=== PATIENT | female | born 1960 | race African-American/Black ===

== ENCOUNTER 2016-03-20 06:36 | Day surgery (SDC) | payer BC ==
[~2016-03-20 06:36] MED LIST: CEFTRIAXONE 1GM IVPB FOR OMNI 50 ML IV ONE; CIPR500T94 PO; LEVO100T5 PO; LEVO150T5 PO; POLY17PO5 PO
[2016-03-20] MEDS ORDERED: HYDROMORPHONE 2 MG/ML VIAL. IV PRN (07:00)
[2016-03-20] MEDS ORDERED: FENTANYL PF 100 MCG/2 ML VIAL. IV PRN ×2 (07:00)
[2016-03-20] MEDS ORDERED: MORPHINE SULFATE 2 MG/ML DISP.SYRIN. IV PRN (07:00)
[2016-03-20] MEDS ORDERED: PROCHLORPERAZINE 10 MG/2 ML VIAL. IV PRN (07:00)
[2016-03-20] MEDS ORDERED: IV RINGERS,LACTATED 1000ML 1,000 ML IV SCH (07:00)
[2016-03-20] MEDS ORDERED: LIDOCAINE 1% 1 ML SYRINGE. ID PRN (07:00)
[2016-03-20 07:05] LABS: BILIRUBIN,URINE NEGATIVE (NEG); GLUCOSE,URINE NEGATIVE (NEG); NITRITE,URINE NEGATIVE (NEG); PH,URINE 6.5; PROTEIN,URINE NEGATIVE (NEG-TRACE); UROBILINOGEN,URINE 0.2 mg/dL (0.2 mg/dL)
[2016-03-20 07:24] LABS: BACTERIA,URINE 0 /HPF (0-FEW); RBC,URINE 0 /HPF (0-2); SQUAMOUS EPITHELIAL CELL,UR MOD /LPF
[2016-03-20 07:34] LABS: BASO # 0.1 x10^3/uL (0.0-0.2); BASO % 2 % (0-3); CALCIUM 9.7 mg/dL (8.5-10.1); CREATININE 0.9 mg/dL (0.6-1.0); EOS % 4 % (0-3); HEMATOCRIT 33.8 % (36.0-47.0); HEMOGLOBIN 11.1 g/dL (12.0-15.5); LYMPH % 32 % (24-48); MEAN CORPUSCULAR HEMOGLOBIN 26 pg (25-35); MEAN CORPUSCULAR HGB CONC 33 g/dL (31-37); MEAN CORPUSCULAR VOLUME 80 fL (79-100); MONO % 7 % (0-9); NEUT % 54 % (31-73); PLATELET COUNT 219 x10^3/uL (140-400); RED BLOOD COUNT 4.21 x10^6/uL (3.50-5.40); RED CELL DISTRIBUTION WIDTH 15.8 % (11.5-14.5); WHITE BLOOD COUNT 6.1 x10^3/uL (4.0-11.0)
[2016-03-20] MEDS ORDERED: LIDOCAINE 2% 100 MG/5 ML DISP.SYRIN. ONE (07:44)
[2016-03-20] MEDS ORDERED: EPHEDRINE PF IN SALINE 50 MG/5 ML DISP.SYRIN. IV ONE (07:44)
[2016-03-20] MEDS ORDERED: ONDANSETRON PF 4 MG/2 ML VIAL. ONE (07:44)
[2016-03-20] MEDS ORDERED: PROPOFOL 20 ML IV ONE (07:44)
[2016-03-20] MEDS ORDERED: FENTANYL PF 100 MCG/2 ML VIAL. ONE (07:45)
[2016-03-20] MEDS ORDERED: IOHEXOL 300 MG/ML 50 ML VIAL. ONE (07:45)
[2016-03-20] MEDS ORDERED: SEVOFLURANE 61 TO 120 MINUTES. IH ONE (09:33)
--- NOTE | 2016-03-20 10:00 | DISCH ---
DISCHARGE INSTRUCTIONS Condition on Discharge Condition on Discharge: Stable Activity After Discharge Activity Instructions for Disc: Activity as tolerated Driving Instructions after Dis: Do not drive today Diet after Discharge Diet after Discharge: Regular Additional Diet Restrictions: Drink 8-10 12oz glasses of water per day with sten Contacting the DR. after DC Call your doctor for: Concerns you may have Follow-Up Follow up with: 5-7 days for removal of stent in office SHANKAR ROWE DO Mar 20, 2016 10:00
--- NOTE | 2016-03-20 10:04 | PDOC ---
BRIEF OPERATIVE NOTE Pre-Op Diagnosis right hydronephrosis, abnormal CT-scan Post-Op Diagnosis same Procedure Performed cystoscopy Right retrograde pyelogram diagnostic flexible ureteroscopy right stent placement Surgeon Jana Anesthesia Type: General Specimens Obtained None Findings normal study Complications none Additional Remarks will remove stent in office in 5-10 days SHANKAR ROWE DO Mar 20, 2016 10:04
[2016-03-20] MEDS ORDERED: PHEN-373 PO ×2 (10:10→10:12)
[2016-03-20] MEDS ORDERED: HYDR-2666 PO (10:11)
[2016-03-20 10:35] VITALS: BP 124/64
--- NOTE | 2016-03-20 10:48 | OP ---
DATE OF SURGERY: 03/20/2016 PREOPERATIVE DIAGNOSIS: Right hydronephrosis, dilated proximal right ureter. POSTOPERATIVE DIAGNOSIS: Right hydronephrosis, dilated proximal right ureter. PROCEDURES PERFORMED: Cystoscopy, right retrograde pyelogram, diagnostic ureteroscopy, placement of right ureteral stent. SURGEON: Shankar Rowe D.O. ANESTHESIA: General. INDICATIONS AND JUDGMENT: This is a 55-year-old female that was recently hospitalized for pyelonephritis and hematuria. During her workup, a CT scan revealed a dilated right renal pelvis and dilated proximal right ureter. Her infection was treated. She was sent home. It was felt that after her infection had been resolved, she needed to undergo further diagnostic test to rule out possible mass in the proximal right ureter. This was explained to the patient, she appeared to understand and was agreeable. DESCRIPTION OF PROCEDURE: The patient was preloaded with IV antibiotics. She was then taken to the operating room and placed on the operating room table, given a general anesthetic and then placed in a dorsolithotomy position using Cecil stirrups since we do not have a cystoscopy table. A C-arm was then moved into position. Rigid cystoscopy was then performed. The patient has a moderate cystocele. The right ureteral orifice was identified. It was cannulated with an 8-Estonian cone tip ureteral catheter. Contrast was injected. The course and caliber of the ureter appeared to be somewhat better at this point in time. The right renal pelvis did not appear as dilated. I then passed a 0.035 guidewire up the right ureteral orifice into the renal pelvis. I then balloon dilated the right ureteral orifice with 4 cm balloon. Following that, I advanced a sensor wire alongside the guidewire. I then attempted to advance a digital ureteroscope over the sensor wire, but it would not go beyond few cm of the ureter. There appeared to be some type of angulation. So the digital flexible ureteroscope was removed. I then tried the smaller ureteroscope, but it too could not pass this area in the pelvic ureter. I then balloon dilated the ureter with a 10 cm balloon to open up the ureter more satisfactorily. Following this, I advanced the digital ureteroscope over the guidewire and it advanced up the ureter under fluoroscopy without any difficulty. I advanced the flexible digital ureteroscope into the renal pelvis. At that point, I inspected the renal pelvis, the calices were normal. There was no sign of tumor or stones within the renal pelvis. I then slowly withdrawn the digital flexible ureteroscope into the proximal ureter which was normal in course and caliber. The area did not appear to be any filling defects, no tumors, no stones and I just slowly withdrew the flexible ureteroscope and the course and caliber of the ureter was completely normal and there were no filling defects such as tumors or stones. The flexible ureteroscope was then removed. Due to all the instrumentation I felt it would be best to leave an indwelling right ureteral stent. Therefore, a 6-Estonian x 26 cm double-J ureteral stent was advanced over the guidewire up to the ureter under fluoroscopy into the right renal pelvis. The positioning appeared to be satisfactory and therefore the wire was removed leaving the stent in place. The patient tolerated the procedure well and was sent to recovery room in satisfactory condition. Today's procedure reveals that there are no tumors or filling defects in the proximal right ureter, the renal pelvis was normal. The studies were normal. Her abnormal CT scan, previously was probably due to her pyelonephritis and swelling of the renal pelvis and proximal ureter. But no pathology was identified today. The patient will be sent home with an indwelling right ureteral stent, which can removed in the office in 3-5 days. She was given a prescription for Cipro antibiotics, Lortab 5 and generic Pyridium. Her condition was satisfactory. SHANKAR ROWE DO DR: Gagandeep JOB#: [id number] / [id number]
== END 2016-03-20 11:08 | disposition home or self-care (01) ==
LOC: SURG 06:36
PROVIDERS: ATTEND Urology
DX: N13.39 Other hydronephrosis (principal); N28.82 Megaloureter; N28.89 Other specified disorders of kidney and ureter; E03.9 Hypothyroidism, unspecified
CPT/HCPCS: 36415; 52332; 52351; 74420; 80048; 81001; 85027; 87086; C1726; C1769; C2617; J0690; J2405; J2704; J3010; Q9967

== ENCOUNTER 2020-05-18 18:25 | Emergency (ER) | payer BC ==
[~2020-05-18] VITALS: Ht 172.7 cm; Wt 92.2 kg
[~2020-05-18 18:25] MED LIST changes: -CEFTRIAXONE 1GM IVPB FOR OMNI 50 ML IV ONE; +HYDR-2761 PO; +PHEN-444 PO; +POLY17PO29 PO; -POLY17PO5 PO
[2020-05-18] MEDS ORDERED: NAPR-683 PO (20:40)
[2020-05-18] MEDS ORDERED: CYCL10TA2 PO (20:40)
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
[2020-05-18 21:05] VITALS: BP 147/71
== END 2020-05-18 21:09 | disposition home or self-care (01) ==
LOC: ER 18:25
DX: S16.1XXA Strain of muscle, fascia and tendon at neck level, initial encounter (principal); R25.2 Cramp and spasm; M54.6 Pain in thoracic spine; E03.9 Hypothyroidism, unspecified; Z90.89 Acquired absence of other organs; Z98.890 Other specified postprocedural states; V49.9XXA Car occupant (driver) (passenger) injured in unspecified traffic accident, initial encounter; Y93.89 Activity, other specified; Y92.89 Other specified places as the place of occurrence of the external cause; Y99.8 Other external cause status
CPT/HCPCS: 99283

== ENCOUNTER 2020-09-04 08:06 | Emergency (ER) | payer BC, OTHER ==
[~2020-09-04] VITALS: Ht 170.2 cm; Wt 95.4 kg
[~2020-09-04 08:06] MED LIST changes: +CYCL10TA2 PO; +NAPR-683 PO
[2020-09-04] MEDS ORDERED: IV NORMAL SALINE 1000ML BAG 1,000 ML IV ONE (09:30)
[2020-09-04 09:36] LABS: BILIRUBIN,URINE NEGATIVE (NEG); CLARITY,URINE CLOUDY; COLOR,URINE RED; NITRITE,URINE NEGATIVE (NEG); PH,URINE 5.5 (<5.0-8.0); PROTEIN,URINE 100 mg/dL (NEG-TRACE); UROBILINOGEN,URINE 0.2 mg/dL (0.2 mg/dL)
--- NOTE | 2020-09-04 09:37 | PHYS DOC ---
Past Medical History Past Medical History: Hypothyroid (KARTIK MORGAN GARBAGE WORKER) Past Surgical History: Other Additional Past Surgical Histo: THYROIDECTOMY 2005 (KARTIK MORGAN GARBAGE WORKER) Smoking Status: Never Smoker Alcohol Use: None Drug Use: None (KARTIK MORGAN GARBAGE WORKER) General Adult EDM: Chief Complaint: BLOOD IN URINE HPI: HPI: Patient is a 60 year old female with a history of hypothyroidism who presents to the ED today complaining of hematuria that began yesterday. Patient denies any back pain. Denies any flank pain. Denies any urgency, frequency or dysuria. Denies any nausea or vomiting, denies any fever. She states she believes she has a bad UTI (KARTIK MORGAN GARBAGE WORKER) Review of Systems: Review of Systems: Constitutional: Denies fever or chills. [] Eyes: Denies change in visual acuity. [] HENT: Denies nasal congestion or sore throat. [] Respiratory: Denies cough or shortness of breath. [] Cardiovascular: Denies chest pain or edema. [] GI: Denies abdominal pain, nausea, vomiting, bloody stools or diarrhea. [] : Reports hematuria. Denies dysuria. [] Musculoskeletal: Denies back pain or joint pain. [] Integument: Denies rash. [] Neurologic: Denies headache, focal weakness or sensory changes. [] Psychiatric: Denies depression or anxiety. [] (KARTIK MORGAN GARBAGE WORKER) Heart Score: C/O Chest Pain: N/A Risk Factors: Risk Factors: DM, Current or recent (<one month) smoker, HTN, HLP, family history of CAD, obesity. Risk Scores: Score 0 - 3: 2.5% MACE over next 6 weeks - Discharge Home Score 4 - 6: 20.3% MACE over next 6 weeks - Admit for Clinical Observation Score 7 - 10: 72.7% MACE over next 6 weeks - Early Invasive Strategies (KARTIK MORGAN GARBAGE WORKER) Current Medications: Current Medications Medications (Trade) Dose Ordered Sig/Rickie Start Time Stop Time Status Last Admin Dose Admin Sodium Chloride 1,000 ml @ 1,000 mls/hr 1X ONCE 09/04/20 09:30 09/04/20 10:29 (KARTIK MORGAN GARBAGE WORKER) Allergies: Allergies: Allergies Coded Allergies Type Severity Reaction Last Updated Verified No Known Drug Allergies 03/20/16 No (KARTIK MORGAN GARBAGE WORKER) Physical Exam: PE: Constitutional: Well developed, well nourished, no acute distress, non-toxic appearance. [] HENT: Normocephalic, atraumatic, bilateral external ears normal, oropharynx moist, no oral exudates, nose normal. [] Eyes: PERRLA, EOMI, conjunctiva normal, no discharge. [] Neck: Normal range of motion, no tenderness, supple, no stridor. [] Cardiovascular:Heart rate regular rhythm, no murmur [] Lungs & Thorax: Bilateral breath sounds clear to auscultation [] Abdomen: Bowel sounds normal, soft, no tenderness, no masses, no pulsatile masses. [] Skin: Warm, dry, no erythema, no rash. [] Back: No tenderness, no CVA tenderness. [] Extremities: No tenderness, no cyanosis, no clubbing, ROM intact, no edema. [] Neurologic: Alert and oriented X 3, normal motor function, normal sensory function, no focal deficits noted. [] Psychologic: Affect normal, judgement normal, mood normal. [] (KARTIK MORGAN GARBAGE WORKER) EKG: EKG: [] (KARTIK MORGAN GARBAGE WORKER) Radiology/Procedures: Radiology/Procedures: []PROCEDURE: CT ABDOMEN PELVIS WO CONTRAST Exam: CT abdomen/pelvis without contrast Indication: Hematuria Comparison: CT abdomen pelvis 02/20/2016 Technique: Helical CT imaging performed of the abdomen and pelvis without contrast. Sagittal and coronal reformats were obtained. One or more of the following individualized dose reduction techniques were utilized for this examination: 1. Automated exposure control 2. Adjustment of the mA and/or kV according to patient size 3. Use of iterative reconstruction technique. Findings: Lower chest: Lung bases are clear. The heart is normal in size. There are calcified mediastinal and left hilar lymph nodes. Liver: Normal noncontrast appearance of the liver. Gallbladder/Biliary Tree: Normal. Pancreas: Normal. Spleen: Calcified splenic granulomas. No splenomegaly. Adrenal Glands: Normal. Kidneys/Ureters/Bladder: Kidneys are normal in size. No nephrolithiasis or hydronephrosis. Ureters are normal. Urinary bladder is unremarkable. Reproductive Organs: Uterus and ovaries are unremarkable. Stomach, small bowel, and colon: Stomach is normal. There is no small bowel obstruction. The appendix is normal. Vasculature: Abdominal aorta is normal in caliber. Lymph Nodes: No lymphadenopathy. Peritoneum and retroperitoneum: No free fluid or free air. Bones: There is grade 2 spondylolisthesis and severe degenerative disc disease at L5-S1 related to bilateral L5 pars defects. Moderate degenerative disc disease at L4-L5. Miscellaneous: Small fat-containing umbilical hernia. IMPRESSION: 1. No urolithiasis or hydronephrosis. 2. Small fat-containing umbilical hernia. 3. 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 Electronically signed by: Krissy Main MD (09/04/2020 10:20 AM) [id number] DICTATED and SIGNED BY: KRISSY MAIN MD DATE: 09/04/20 [id number] (KARTIK MORGAN APRN) Course & Med Decision Making: Course & Med Decision Making Pertinent Labs and Imaging studies reviewed. (See chart for details) This is a 60-year-old female patient presenting to the ED today with hematuria since yesterday. CBC CMP with no acute findings, UA positive for UTI, CT of the abdomen and pelvic was negative for any acute findings, noted for umbilical hernia and spondylosis. Patient was given IV fluids, Rocephin and pain medicine, feeling better. Discharge to home with Cipro. (KARTIK MORGAN APRN) Dragon Disclaimer: Dragon Disclaimer: This electronic medical record was generated, in whole or in part, using a voice recognition dictation system. (KARTIK MORGAN APRN) Departure Departure Impression: Primary Impression: Urinary tract infection Qualified Codes: N39.0 - Urinary tract infection, site not specified; R31.9 - Hematuria, unspecified Disposition: 01 HOME / SELF CARE / HOMELESS Condition: STABLE Referrals: EZRA SINGH (PCP) follow up with your doctor in 1-2 weeks Patient Instructions: Urinary Tract Infection Additional Instructions: You were evaluated in the emergency room and noted to have urinary tract infection, we put you on antibiotics, ensure you complete them. Take Tylenol or Motrin for pain or fever. Push fluids, follow-up with your doctor in 1 to 2 weeks. 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 I was available for consultation as needed during the patient's visit in the emergency department. I agree with the clinical impression, plan, and disposition. (RAVEN MATOS DO) KARTIK MORGAN APRN Sep 04, 2020 09:37 RAVEN MATOS DO Sep 04, 2020 16:51
[2020-09-04 09:48] LABS: BACTERIA,URINE MODERATE /HPF (0-FEW); WBC,URINE 20-40 /HPF (0-4)
[2020-09-04 09:55] LABS: BASO # 0.1 x10^3/uL (0.0-0.2); BASO % 1 % (0-3); EOS # 0.1 x10^3/uL (0.0-0.7); EOS % 1 % (0-3); HEMATOCRIT 35.4 % (36.0-47.0); HEMOGLOBIN 12.1 g/dL (12.0-15.5); LYMPH # 1.3 x10^3/uL (1.0-4.8); LYMPH % 14 % (24-48); MEAN CORPUSCULAR HEMOGLOBIN 28 pg (25-35); MEAN CORPUSCULAR HGB CONC 34 g/dL (31-37); MEAN CORPUSCULAR VOLUME 81 fL (79-100); MONO # 0.6 x10^3/uL (0.0-1.1); MONO % 6 % (0-9); NEUT % 77 % (31-73); PLATELET COUNT 278 x10^3/uL (140-400); RED CELL DISTRIBUTION WIDTH 14.7 % (11.5-14.5); WHITE BLOOD COUNT 9.1 x10^3/uL (4.0-11.0)
[2020-09-04 10:02] LABS: CREATININE 0.8 mg/dL (0.6-1.0); GFR 88.8; POTASSIUM 3.8 mmol/L (3.5-5.1)
[2020-09-04 10:08] LABS: ALBUMIN 3.3 g/dL (3.4-5.0); ALBUMIN/GLOBULIN RATIO 0.7 (1.0-1.7); TOTAL BILIRUBIN 0.2 mg/dL (0.2-1.0)
[2020-09-04] MEDS ORDERED: cefTRIAXone IV Push 1 GM VIAL. IVP ONE (10:15)
--- NOTE | 2020-09-04 10:22 | RAD ---
Exam: CT abdomen/pelvis without contrast Indication: Hematuria Comparison: CT abdomen pelvis 02/20/2016 Technique: Helical CT imaging performed of the abdomen and pelvis without contrast. Sagittal and kelsie nal reformats were obtained. One or more of the following individualized dose reduction techniques were utilized for this examinat ion: 1. Automated exposure control 2. Adjustment of the mA and/or kV according to patient size 3. Use of iterative reconstruction technique. Findings: Lower chest: Lung bases are clear. The heart is normal in size. There are calcified mediastinal and l eft hilar lymph nodes. Liver: Normal noncontrast appearance of the liver. Gallbladder/Biliary Tree: Normal. Pancreas: Normal. Spleen: Calcified splenic granulomas. No splenomegaly. Adrenal Glands: Normal. Kidneys/Ureters/Bladder: Kidneys are normal in size. No nephrolithiasis or hydronephrosis. Ureters ar e normal. Urinary bladder is unremarkable. Reproductive Organs: Uterus and ovaries are unremarkable. Stomach, small bowel, and colon: Stomach is normal. There is no small bowel obstruction. The appendix is normal. Vasculature: Abdominal aorta is normal in caliber. Lymph Nodes: No lymphadenopathy. Peritoneum and retroperitoneum: No free fluid or free air. Bones: There is grade 2 spondylolisthesis and severe degenerative disc disease at L5-S1 related to bi lateral L5 pars defects. Moderate degenerative disc disease at L4-L5. Miscellaneous: Small fat-containing umbilical hernia. IMPRESSION: 1. No urolithiasis or hydronephrosis. 2. Small fat-containing umbilical hernia. 3. 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 Electronically signed by: Krissy Main MD (09/04/2020 10:20 AM) [id number]
[2020-09-04] MEDS ORDERED: KETOROLAC 15 MG/ML VIAL. ONE (10:37)
[2020-09-04] MEDS ORDERED: MORPHINE SULFATE 4 MG/ML INJ. ONE (10:38)
[2020-09-04] MEDS ORDERED: MORPHINE SULFATE 4 MG/ML INJ. IV ONE (10:45)
[2020-09-04] MEDS ORDERED: KETOROLAC 15 MG/ML VIAL. IVP ONE (10:45)
[2020-09-04] MEDS ORDERED: PHEN100T82 PO (11:13)
[2020-09-04] MEDS ORDERED: HYDR-2934 PO (11:13)
[2020-09-04] MEDS ORDERED: CEPH500T PO (11:13)
[2020-09-04 11:30] VITALS: BP 127/88
== END 2020-09-04 11:47 | disposition home or self-care (01) ==
LOC: ER 08:06
DX: N39.0 Urinary tract infection, site not specified (principal); R31.9 Hematuria, unspecified; E03.9 Hypothyroidism, unspecified
CPT/HCPCS: 36415; 74176; 80053; 81001; 83690; 85025; 87086; 96361; 96374; 96375; 99285; J0696; J1885; J2270; J7030